=== PATIENT | male | born 1965 | race American Indian/Alaskan Native ===

== ENCOUNTER 2017-07-31 23:16 | Emergency (ER) | payer MEDICARE, OTHER ==
[2017-08-01] MEDS ORDERED: MOTRIN PO ONE (02:36)
[2017-08-01] MEDS ORDERED: FLEXERIL PO ONE (02:36)
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
[2017-08-01 04:24] VITALS: BP 121/80
== END 2017-08-01 04:24 | disposition home or self-care (01) ==
LOC: ED 23:16
DX: S13.4XXA Sprain of ligaments of cervical spine, initial encounter (principal); S46.911A Strain of unspecified muscle, fascia and tendon at shoulder and upper arm level, right arm, initial encounter; F31.9 Bipolar disorder, unspecified; F17.200 Nicotine dependence, unspecified, uncomplicated; V49.49XA Driver injured in collision with other motor vehicles in traffic accident, initial encounter; Y93.89 Activity, other specified; Y92.89 Other specified places as the place of occurrence of the external cause; Y99.8 Other external cause status
CPT/HCPCS: 72125

== ENCOUNTER 2019-09-30 12:10 | Emergency (ER) | payer MEDICARE, OTHER ==
[2019-09-30 13:04] VITALS: BP 136/89
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
--- NOTE | 2019-09-30 17:01 | XRay Report ---
RIGHT HAND 3 VIEW(S) INDICATION / CLINICAL INFORMATION: pain COMPARISON: None available. FINDINGS: BONES / JOINT(S): No acute fracture or subluxation. No significant arthritis. SOFT TISSUES: No significant abnormality. ADDITIONAL FINDINGS: None. Signer Name: Christel Bojorquez MD Signed: 09/30/2019 4:56 PM Workstation Name: [id number]
--- NOTE | 2019-09-30 17:02 | XRay Report ---
RIGHT SHOULDER 3 VIEW(S) INDICATION / CLINICAL INFORMATION: pain COMPARISON: 08/01/17 FINDINGS: BONES / JOINT(S): No acute fracture or subluxation. Moderate acromioclavicular degenerative arthrosis , unchanged. SOFT TISSUES: No significant abnormality. ADDITIONAL FINDINGS: None. Signer Name: Christel Bjoorquez MD Signed: 09/30/2019 4:57 PM Workstation Name: [id number]
[2019-09-30] MEDS ORDERED: traMADol 50 MG TAB PO ONE (19:36)
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
== END 2019-09-30 20:05 | disposition home or self-care (01) ==
LOC: ED 12:10
DX: S46.991A Other injury of unspecified muscle, fascia and tendon at shoulder and upper arm level, right arm, initial encounter (principal); S66.011A Strain of long flexor muscle, fascia and tendon of right thumb at wrist and hand level, initial encounter; F31.9 Bipolar disorder, unspecified; Z79.899 Other long term (current) drug therapy; V89.2XXA Person injured in unspecified motor-vehicle accident, traffic, initial encounter; Y93.89 Activity, other specified; Y92.410 Unspecified street and highway as the place of occurrence of the external cause; Y99.8 Other external cause status
CPT/HCPCS: 99283